=== PATIENT | male | born 1955 | race Caucasian/White ===

== ENCOUNTER 2018-11-02 23:50 | Observation (INO) ==
[2018-11-03] MEDS ORDERED: IBUPROFEN 800 MG TABLET PO STA (00:16)
[2018-11-03] MEDS ORDERED: ORPHENADRINE 60 MG/2 ML VIAL IV STA (00:18)
[2018-11-03] MEDS ORDERED: methylPREDNISolone SOD SUC 125 MG/2 ML VIAL IV STA (00:24)
[2018-11-03 01:23] LABS: Basophils % 0.3 % (0.0-0.8); Eosinophils % 0.1 % (0.00-10.9); Hematocrit 37.2 VOL% (42.0-52.0); Hemoglobin 12.4 GM/DL (14.0-18.0); Immature Granulocytes % 0.6 %; Immature Granulocytes Absolute 0.07 #; Lymphocytes # 1.2 10*3/uL (1.4-4.0); Lymphocytes % 10.1 % (21.2-54.2); Mean Corpuscular HGB Conc 33.3 GM/DL (32-36); Mean Corpuscular Volume 85.9 FL (87-102); Mean Platelet Volume 10.7 FL (9.6-12.0); Monocytes % 9.8 % (1.7-12.7); Neutrophils % 79.1 % (38.7-73.9); Platelet Count 159 T/CUMM (130-400); Red Blood Count 4.33 MC/CUMM (3.8-5.5); Red Cell Distribution Width 13.4 % (9.3-17.3); White Blood Count 11.6 T/CUMM (4-12)
[2018-11-03 01:30] LABS: PT Patient Result 10.9 SECS; Partial Thromboplastin Time 23.8 SECS (0-40)
[2018-11-03 01:39] LABS: Troponin I < 0.015 NG/ML (0.00-0.045)
[2018-11-03] MEDS ORDERED: SODIUM CHLORIDE 0.9% 1,000 ML IV STA (01:41)
[2018-11-03 01:43] LABS: Apearance,Urine CLEAR (Clear); Bilirubin,Urine Negative (Negative); Blood, Urine Small mg/dL (Negative); Glucose,Urine (UA) Negative (Negative); Ketones,Urine Negative (Negative); Mucus,Urine Occasional /LPF (Occasional); Nitrite,Urine Negative (Negative); Protein,Urine Negative; RBC,Urine 3 /HPF (0-4); Urine Color Yellow (Yellow); WBC,Urine <1 /HPF (0-6)
[2018-11-03 01:57] LABS: Albumin 3.9 G/DL (3.4-5.0); Bilirubin,Total 1.1 MG/DL (0.2-1.0); Calcium 8.8 MG/DL (8.5-10.1); Total Protein 6.6 G/DL (6.4-8.3)
[2018-11-03 02:39] LABS: Sedimentation Rate-Westergren 28 MM/HR (0-20)
[2018-11-03] MEDS ORDERED: ACETAMINOPHEN 325 MG TABLET PO PRN (03:24)
[2018-11-03] MEDS ORDERED: ONDANSETRON 4 MG/2 ML VIAL IV PRN (03:24)
[2018-11-03] MEDS: SODIUM CHLORIDE 0.9% 1,000 ML IV SCH ×3 (06:10→22:03)
[2018-11-03] MEDS: ENOXAPARIN 40 MG/0.4 ML SYRINGE SUBCUT SCH (06:10)
[2018-11-03 06:59] LABS: Basophils # 0.1 10*3/uL (0.0-0.2); Basophils % 0.3 % (0.0-0.8); Hematocrit 38.3 VOL% (42.0-52.0); Hemoglobin 12.6 GM/DL (14.0-18.0); Immature Granulocytes % 0.7 %; Immature Granulocytes Absolute 0.11 #; Lymphocytes # 0.7 10*3/uL (1.4-4.0); Lymphocytes % 4.7 % (21.2-54.2); Mean Corpuscular HGB Conc 32.9 GM/DL (32-36); Mean Corpuscular Volume 86.3 FL (87-102); Mean Platelet Volume 10.6 FL (9.6-12.0); Monocytes % 2.8 % (1.7-12.7); Neutrophils % 91.5 % (38.7-73.9); Platelet Count 150 T/CUMM (130-400); Red Blood Count 4.44 MC/CUMM (3.8-5.5); Red Cell Distribution Width 13.7 % (9.3-17.3); White Blood Count 14.8 T/CUMM (4-12)
[2018-11-03 07:51] LABS: Anisocytosis Slight; Band Neutrophils 30 % (0-10); Lymphocytes 5 % (20-55); Platelet Estimate Adequate; Segmented Neutrophils 64 % (50-85); Total Cells Counted 100
[2018-11-03] MEDS: PANTOPRAZOLE 40 MG TABLET PO SCH (09:21)
[2018-11-03] MEDS ORDERED: NON-FORMULARY MEDICATION (Esomeprazole Magnesium [Esomeprazole] 40 MG) PO SCH (09:30)
[2018-11-03] MEDS: PREGABALIN 100 MG CAPSULE PO SCH ×3 (10:13→20:55)
[2018-11-03] MEDS: LISINOPRIL 10 MG TABLET PO SCH (10:13)
[2018-11-03] MEDS: ATORVASTATIN 10 MG TABLET PO SCH (10:13)
[2018-11-03] MEDS: ASPIRIN EC 81 MG TABLET PO SCH (10:14)
[2018-11-03] MEDS: ATENOLOL 50 MG TABLET PO SCH (10:16)
[2018-11-03] MEDS ORDERED: diphenhydrAMINE CAP 50 MG CAPSULE PO ONE (10:30)
[2018-11-03] MEDS ORDERED: cefTRIAXone 1,000 MG in SYRINGE 1 EACH IV SCH (17:30)
[2018-11-03 18:50] LABS: HIV Antigen/Antibody Result Nonreactive (Nonreactive)
[2018-11-03 20:33] LABS: Hepatitis B Core IgM Quant 0.05 Index; Hepatitis B Surface Ag Quant < 0.10 Index; Hepatitis B Surface Ag Result Negative (Negative); Hepatitis C Virus Ab Quant < 0.02 Index; Hepatitis C Virus Ab Result Negative (Negative)
[2018-11-03] MEDS: DOXYCYCLINE HYCLATE 100 MG CAPSULE PO SCH (20:55)
[2018-11-04 07:06] LABS: Basophils % 0.2 % (0.0-0.8); Eosinophils % 0.2 % (0.00-10.9); Hematocrit 33.8 VOL% (42.0-52.0); Hemoglobin 10.9 GM/DL (14.0-18.0); Immature Granulocytes % 0.5 %; Immature Granulocytes Absolute 0.05 #; Lymphocytes # 1.6 10*3/uL (1.4-4.0); Lymphocytes % 14.5 % (21.2-54.2); Mean Corpuscular HGB Conc 32.2 GM/DL (32-36); Mean Corpuscular Volume 89.2 FL (87-102); Mean Platelet Volume 10.7 FL (9.6-12.0); Monocytes % 9.2 % (1.7-12.7); Neutrophils % 75.4 % (38.7-73.9); Platelet Count 133 T/CUMM (130-400); Red Blood Count 3.79 MC/CUMM (3.8-5.5); Red Cell Distribution Width 14.3 % (9.3-17.3)
[2018-11-04 07:21] LABS: Osmolality,Calculated 285.1 MOS/KG (273-304); Total Protein 5.9 G/DL (6.4-8.3)
[2018-11-04 07:38] VITALS: BP 115/60
[2018-11-04] MEDS ORDERED: diphenhydrAMINE 2% CREAM 28 GM TUBE TOP PRN (07:50)
[2018-11-04] MEDS: LISINOPRIL 10 MG TABLET PO SCH (08:44)
[2018-11-04] MEDS: PANTOPRAZOLE 40 MG TABLET PO SCH (08:45)
[2018-11-04] MEDS: ASPIRIN EC 81 MG TABLET PO SCH (08:45)
[2018-11-04] MEDS: PREGABALIN 100 MG CAPSULE PO SCH (08:45)
[2018-11-04] MEDS: ATORVASTATIN 10 MG TABLET PO SCH (08:45)
[2018-11-04] MEDS: ATENOLOL 50 MG TABLET PO SCH (08:45)
[2018-11-04] MEDS: DOXYCYCLINE HYCLATE 100 MG CAPSULE PO SCH (08:46)
[2018-11-04] MEDS: ENOXAPARIN 40 MG/0.4 ML SYRINGE SUBCUT SCH (08:46)
[2018-11-04] MEDS ORDERED: predniSONE 20 MG TABLET PO SCH (09:00)
[2018-11-04] MEDS ORDERED: diphenhydrAMINE CAP 25 MG CAPSULE PO SCH (09:00)
[2018-11-04] MEDS ORDERED: FAMOTIDINE 20 MG TABLET PO SCH (09:00)
[2018-11-05 13:55] LABS: Myeloperoxidase Antibody < 0.2 U
[2018-11-05 22:47] LABS: Anaplasma phagocytophilum Negative (Negative); Ehrlichia Chaffeensis (HME)IgG <1:64 titer (<1:64); Ehrlichia chaffeensis Negative (Negative); Ehrlichia ewingii/canis Negative (Negative); Ehrlichia muris eauclairensis Negative (Negative)
[2018-11-06 13:56] LABS: Varicella IgG Index 2.6
== END 2018-11-04 11:17 | disposition home or self-care (01) ==
LOC: N.ED 23:50 → N.EDINP 23:50 → N.2E 11-03 05:31
PROVIDERS: ADMIT Internal Medicine; ATTEND Internal Medicine